=== PATIENT | female | born 1960 | race Caucasian/White ===

== ENCOUNTER 2019-05-16 11:46 | Outpatient (CLI) | payer OTHER ==
--- NOTE | 2019-05-16 13:43 | MMO ---
Bilateral MAMMO Bilat Screen [facility]. CLINICAL HISTORY: Patient is 58 years old and is seen for screening. The patient has no family history of breast cancer. The patient has no personal history of cancer. The patient has a history of right Stereotatic Biopsy in 2010 - benign. VIEWS: The views performed were: bilateral craniocaudal with tomosynthesis and bilateral mediolateral oblique with tomosynthesis. This study has been interpreted with the assistance of computer-aided detection. MAMMOGRAM FINDINGS: The breasts are heterogeneously dense, which could obscure a lesion on mammography. Finding 1: There are benign appearing calcifications seen in both breasts. Finding 2: There is a biopsy clip seen in the right breast. There are no suspicious masses, suspicious calcifications, or areas of architectural distortion. IMPRESSION: THERE IS NO MAMMOGRAPHIC EVIDENCE OF MALIGNANCY. A ROUTINE FOLLOW-UP MAMMOGRAM IN 1 YEAR IS RECOMMENDED. THE RESULTS OF THIS EXAM WERE SENT TO THE PATIENT. ACR BI-RADS Category 2 - Benign finding MAMMOGRAPHY NOTE: 1. A negative mammogram report should not delay a biopsy if a dominant of clinically suspicious mass is present. 2. Approximately 10% to 15% of breast cancers are not detected by mammography. 3. Adenosis and dense breasts may obscure an underlying neoplasm. Reported by: JAMAL ANDRADE MD Electonically Signed: [id number]
== END 2019-05-16 11:47 | disposition home or self-care (01) ==
LOC: BICMAMMO 11:46
PROVIDERS: ATTEND Family Medicine
DX: Z12.31 Encounter for screening mammogram for malignant neoplasm of breast (principal); Z91.89 Other specified personal risk factors, not elsewhere classified
CPT/HCPCS: 77063; 77067

== ENCOUNTER 2020-04-09 00:01 | Emergency (ER) ==
[2020-04-09 05:17] LABS: SARS-CoV-2 MS2 Positive; SARS-CoV-2 N Gene Positive; SARS-CoV-2 S Gene Positive; SARS-CoV-2 by NAA DETECTED (NotDetected); SARS-CoV-2 orf1ab Positive
--- NOTE | 2020-04-09 08:55 | RAD ---
AP CHEST: HISTORY: Cough. FINDINGS: Lungs appear clear of infiltrate. Heart and mediastinum appear normal. Vasculature normal. IMPRESSION: No acute finding. POS: AGW
== END 2020-04-09 01:19 | disposition home or self-care (01) ==
LOC: ERS 00:01
DX: U07.1 COVID-19 (principal); J06.9 Acute upper respiratory infection, unspecified
CPT/HCPCS: 71045; 87635; U0003

== ENCOUNTER 2024-05-23 09:53 | Outpatient (CLI) | payer OTHER | END 2024-05-23 09:54 | disposition home or self-care (01) | LOC: BICRAD 09:53 | PROVIDERS: ATTEND Family Medicine | DX: M53.3 Sacrococcygeal disorders, not elsewhere classified (principal); M46.1 Sacroiliitis, not elsewhere classified; M47.816 Spondylosis without myelopathy or radiculopathy, lumbar region | CPT/HCPCS: 72100; 72202 ==